=== PATIENT | male | born 2005 | race Caucasian/White ===

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

== ENCOUNTER → 2024-01-28 | Outpatient (CLI) | payer MEDICAID ==
[~2024-01-28] MED LIST changes: -ISOVUE-370 76% 100ML VIAL As Ordered ONE
[2024-01-28 14:23] LABS: APPEARANCE, URINE CLEAR (CLEAR); BACTERIA, URINE AUTO NEGATIVE (NEGATIVE); BILIRUBIN, URINE AUTO NEGATIVE (NEGATIVE); BLOOD, URINE BLOOD NEGATIVE (NEGATIVE); COLOR, URINE STRAW (YELLOW); GLUCOSE, URINE (UA) AUTO NEGATIVE (NEGATIVE); KETONE, URINE AUTO NEGATIVE (NEGATIVE); LEUKOCYTE ESTERASE, URINE AUTO NEGATIVE (NEGATIVE); NITRITE, URINE AUTO NEGATIVE (NEGATIVE); PROTEIN, URINE AUTO NEGATIVE (NEGATIVE); RBC, URINE AUTO 0 /HPF (0-3); SPECIFIC GRAVITY URINE AUTO 1.013 (1.002-1.035); SQUAMOUS EPITHELIAL CELL UR AU 0 /HPF (0-6); UROBILINOGEN, URINE AUTO 0.2 mg/dL (0.0-2.0); WBC, URINE AUTO 0 /HPF (0-3)
[2024-01-28 14:27] LABS: HEMATOCRIT 41.5 % (42.0-52.0); HEMOGLOBIN 14.4 g/dl (13.5-17.5); MEAN CORPUSCULAR HEMOGLOBIN 30.8 pg (27.0-33.0); MEAN CORPUSCULAR HGB CONC 34.7 g/dl (32.0-36.5); MEAN CORPUSCULAR VOLUME 88.9 fl (80.0-96.0); PLATELET COUNT, AUTOMATED 306 10^3/uL (150-450); RED BLOOD COUNT 4.67 10^6/uL (4.30-6.10); WHITE BLOOD COUNT 6.5 10^3/uL (4.0-10.0)
[2024-01-28 14:59] LABS: BLOOD UREA NITROGEN 16 MG/DL (9-23); CALCIUM LEVEL 8.7 MG/DL (8.5-10.1); CARBON DIOXIDE LEVEL 29 MMOL/L (20-31); CHLORIDE LEVEL 105 MMOL/L (98-107); CREATININE FOR GFR 1.03 MG/DL (0.70-1.30); GLUCOSE, FASTING 77 MG/DL (60-100); POTASSIUM SERUM 4.2 MMOL/L (3.5-5.1); SODIUM LEVEL 141 MMOL/L (136-145)
== END ==
LOC: M RAD 13:44
PROVIDERS: ATTEND Physician Assistant
DX: Z01.818 Encounter for other preprocedural examination (principal)

== ENCOUNTER 2024-02-06 06:07 | Inpatient (IN) | payer MEDICAID ==
[~2024-02-06] VITALS: Ht 177.8 cm; Wt 72.1 kg
[2024-02-06] VITALS (8 sets, daily range): BP systolic 132–140; BP diastolic 68–80; TEMP 97.2–98.8; O2SAT 94–98
[~2024-02-06 06:07] MED LIST changes: +oil of oregano PO
[2024-02-06] MEDS ORDERED: LR 1,000 ML IV SCH (06:25)
[2024-02-06] MEDS ORDERED: ONDANSETRON 4MG 2ML VIAL IV PRN ×2 (07:35→08:30)
[2024-02-06] MEDS: ceFAZolin SOD 2 GM in IV 1 EA IV ONE (07:41)
[2024-02-06] MEDS ORDERED: ONDANSETRON 4MG 2ML VIAL As Ordered ONE (08:20)
[2024-02-06] MEDS ORDERED: dexmedeTOMIDine (4MCG/ML)200MCG/50ML BTL (PRECEDEX) As Ordered ONE (08:20)
[2024-02-06] MEDS ORDERED: propofoL 200 MG/20 ML VIAL As Ordered ONE (08:20)
[2024-02-06] MEDS ORDERED: MIDAZOLAM INJ 2MG/2ML VIAL As Ordered ONE (08:20)
[2024-02-06] MEDS ORDERED: METOCLOPRAMIDE INJ 10MG/2ML VIAL As Ordered ONE (08:20)
[2024-02-06] MEDS ORDERED: ROCURONIUM BROMIDE 50MG/5ML VIAL As Ordered ONE (08:20)
[2024-02-06] MEDS ORDERED: HYDROmorphone HCL 2MG/ML 1ML VIAL As Ordered ONE (08:20)
[2024-02-06] MEDS ORDERED: fentaNYL 250 MCG/5 ML INJECTION As Ordered ONE (08:20)
[2024-02-06] MEDS ORDERED: SEVOFLURANE INHAL SOLN 250 ML BTL As Ordered ONE (08:20)
[2024-02-06] MEDS ORDERED: SUGAMMADEX SODIUM 500 MG/5 ML VIAL (BRIDION) As Ordered ONE (08:20)
[2024-02-06] MEDS ORDERED: ACETAMINOPHEN 1000MG 100ML IV BAG As Ordered ONE (08:20)
[2024-02-06] MEDS ORDERED: LIDOCAINE 2% 100MG/5ML SDV (FOR ANES.) As Ordered ONE (08:20)
[2024-02-06] MEDS ORDERED: fentaNYL 100 MCG/2 ML INJECTION IV PRN (08:30)
[2024-02-06] MEDS ORDERED: MORPHINE 2 MG/ML 1ML VIAL IV PRN (08:30)
[2024-02-06] MEDS ORDERED: oxyCODONE 5MG TAB PO PRN (08:30)
[2024-02-06] MEDS ORDERED: ePHEDrine SULFATE 25 MG/5 ML(5MG/ML) SYRINGE As Ordered ONE (09:18)
[2024-02-06] MEDS: LIDOCAINE 1% SDV 30ML VIAL As Ordered ONE (11:35)
[2024-02-06] MEDS: METHYLENE BLUE 0.5% (5MG/ML) 10 ML AMP (PROVAYBLUE) As Ordered ONE (11:36)
[2024-02-06] MEDS ORDERED: PROMETHAZINE 25MG/ML 1ML VIAL IV PRN (11:40)
[2024-02-06] MEDS: fentaNYL 100 MCG/2 ML INJECTION IV PRN (12:27)
[2024-02-06 12:37] LABS: HEMATOCRIT 43.4 % (42.0-52.0); MEAN CORPUSCULAR HEMOGLOBIN 31.1 pg (27.0-33.0); MEAN CORPUSCULAR HGB CONC 34.6 g/dl (32.0-36.5); PLATELET COUNT, AUTOMATED 262 10^3/uL (150-450); RED BLOOD COUNT 4.82 10^6/uL (4.30-6.10); WHITE BLOOD COUNT 8.5 10^3/uL (4.0-10.0)
[2024-02-06] MEDS: HYDROMORPHONE HCL 0.5 MG/ 0.5 ML SYRINGE IV PRN (12:38)
[2024-02-06] MEDS: PERCOCET 5MG/325MG TAB PO PRN ×3 (12:39→23:10)
[2024-02-06 12:56] LABS: BLOOD UREA NITROGEN 16 MG/DL (9-23); CARBON DIOXIDE LEVEL 27 MMOL/L (20-31); CHLORIDE LEVEL 104 MMOL/L (98-107); CREATININE FOR GFR 1.04 MG/DL (0.70-1.30); GLUCOSE, FASTING 135 MG/DL (60-100); POTASSIUM SERUM 3.9 MMOL/L (3.5-5.1); SODIUM LEVEL 138 MMOL/L (136-145)
[2024-02-06] MEDS ORDERED: fentaNYL 100 MCG/2 ML INJECTION As Ordered ONE (13:46)
[2024-02-06] MEDS: fentaNYL 100 MCG/2 ML INJECTION IV ONE (13:55)
[2024-02-06] MEDS: NS 1,000 ML IV SCH (14:27)
[2024-02-06] MEDS ORDERED: HOME MED LIST COMPLETE! XX SCH (15:20)
[2024-02-06] MEDS: ceFAZolin SOD 1 GM in D5W MINI-BAG PLUS 50 ML IV SCH (16:18)
[2024-02-06] MEDS: DOCUSATE SODIUM 100MG CAPSULE PO SCH (20:58)
[2024-02-06] MEDS: ACETAMINOPHEN TAB 650MG DOSE (2X325MG) PO PRN (20:58)
[2024-02-06] MEDS: oxyBUTYnin 5 MG TAB PO PRN (22:48)
[2024-02-06] MEDS: NICOTINE 7 MG/24 HR TRANSDERMAL TD PRN (23:08)
[2024-02-07 02:04] VITALS: BP 138/77; TEMP 97.2; O2SAT 96
[2024-02-07 05:56] VITALS: BP 136/78; TEMP 98.1; O2SAT 97
[2024-02-07 06:11] LABS: HEMATOCRIT 39.1 % (42.0-52.0); HEMOGLOBIN 13.7 g/dl (13.5-17.5); MEAN CORPUSCULAR HEMOGLOBIN 30.9 pg (27.0-33.0); MEAN CORPUSCULAR VOLUME 88.3 fl (80.0-96.0); PLATELET COUNT, AUTOMATED 251 10^3/uL (150-450); RED BLOOD COUNT 4.43 10^6/uL (4.30-6.10); WHITE BLOOD COUNT 8.4 10^3/uL (4.0-10.0)
[2024-02-07 06:35] LABS: BLOOD UREA NITROGEN 11 MG/DL (9-23); CALCIUM LEVEL 8.7 MG/DL (8.5-10.1); CARBON DIOXIDE LEVEL 28 MMOL/L (20-31); CHLORIDE LEVEL 103 MMOL/L (98-107); CREATININE FOR GFR 0.96 MG/DL (0.70-1.30); GLUCOSE, FASTING 76 MG/DL (60-100); POTASSIUM SERUM 3.5 MMOL/L (3.5-5.1); SODIUM LEVEL 138 MMOL/L (136-145)
[2024-02-07 10:00] VITALS: BP 135/78; TEMP 98.6; O2SAT 99
[2024-02-07] MEDS ORDERED: COLA100C5 PO (12:57)
[2024-02-07] MEDS ORDERED: PERCOCET PO (12:57)
== END 2024-02-07 16:03 | disposition home or self-care (01) | DRG 443 ==
LOC: M OR 06:07 → M MSPAV 14:39
PROVIDERS: ADMIT Urology; ATTEND Urology
PROC: 8E0W4CZ Robotic Assisted Procedure of Trunk Region, Percutaneous Endoscopic Approach (ICD-10-PCS; 2024-02-06)
PROC: 0TQ34ZZ Repair Right Kidney Pelvis, Percutaneous Endoscopic Approach (ICD-10-PCS; principal; 2024-02-06 07:30)
DX: N13.5 Crossing vessel and stricture of ureter without hydronephrosis (principal); Z88.2 Allergy status to sulfonamides

== ENCOUNTER → 2024-05-14 | Outpatient (CLI) | payer MEDICAID ==
[~2024-05-14] MED LIST changes: +COLA100C5 PO; +ISOVUE-370 76% 100ML VIAL As Ordered ONE; +ONDA-282 PO; -ONDA4TAB6 PO; +PERCOCET PO
== END ==
LOC: M RAD 08:24
PROVIDERS: ATTEND Urology
DX: N13.5 Crossing vessel and stricture of ureter without hydronephrosis (principal)
CPT/HCPCS: 74178; Q9967

== ENCOUNTER 2024-12-08 14:21 | Inpatient (IN) | payer MEDICAID ==
[~2024-12-08] VITALS: Ht 180.3 cm; Wt 80.0 kg
[~2024-12-08 14:21] MED LIST changes: -ISOVUE-370 76% 100ML VIAL As Ordered ONE
[2024-12-08 15:07] LABS: HEMATOCRIT 45.9 % (42.0-52.0); HEMOGLOBIN 16.1 g/dl (13.5-17.5); MEAN CORPUSCULAR HEMOGLOBIN 31.9 pg (27.0-33.0); MEAN CORPUSCULAR HGB CONC 35.1 g/dl (32.0-36.5); MEAN CORPUSCULAR VOLUME 91.1 fl (80.0-96.0); PLATELET COUNT, AUTOMATED 252 10^3/uL (150-450); RED BLOOD COUNT 5.04 10^6/uL (4.30-6.10); WHITE BLOOD COUNT 4.5 10^3/uL (4.0-10.0)
[2024-12-08 15:28] LABS: AMPHETAMINES LEVEL URINE NEGATIVE (NEGATIVE); BARBITURATES URINE NEGATIVE (NEGATIVE)
[2024-12-08 15:29] LABS: BENZODIAZEPINES URINE NEGATIVE (NEGATIVE); CANNABINOIDS URINE NEGATIVE (NEGATIVE); COCAINE METABOLITE URINE NEGATIVE (NEGATIVE); METHADONE URINE NEGATIVE (NEGATIVE); OPIATES URINE NEGATIVE (NEGATIVE); PHENCYCLIDINE URINE NEGATIVE (NEGATIVE)
[2024-12-08 15:32] LABS: ALBUMIN 4.3 G/DL (3.2-5.2); ALKALINE PHOSPHATASE 57 U/L (40-129); ALT/SGPT 15 U/L (7.0-40); AST/SGOT 20 U/L (<34); BILIRUBIN,DIRECT 0.2 MG/DL (<0.4); BILIRUBIN,TOTAL 0.7 MG/DL (0.3-1.2); BLOOD UREA NITROGEN 10 MG/DL (9-23); CALCIUM LEVEL 9.2 MG/DL (8.5-10.1); CARBON DIOXIDE LEVEL 29 MMOL/L (20-31); CHLORIDE LEVEL 106 MMOL/L (98-107); CREATININE FOR GFR 0.82 MG/DL (0.70-1.30); GLUCOSE, FASTING 76 MG/DL (60-100); POTASSIUM SERUM 4.1 MMOL/L (3.5-5.1); SALICYLATE LEVEL < 3.0 MG/DL (<30); SODIUM LEVEL 143 MMOL/L (136-145); TOTAL PROTEIN 7.1 G/DL (5.7-8.2)
[2024-12-08 15:35] LABS: THYROID STIMULATING HORMONE 0.626 uIU/ML (0.48-4.17)
[2024-12-08] MEDS ORDERED: HOME MED LIST COMPLETE! XX SCH (18:10)
[2024-12-08] MEDS ORDERED: MAALOX 30 ML SUSP *UDC PO PRN (18:55)
[2024-12-08] MEDS ORDERED: MOM 30ML SUSPENSION UDC PO PRN (18:55)
[2024-12-08] MEDS ORDERED: IBUPROFEN 400MG TAB PO PRN (18:55)
[2024-12-08] MEDS: MULTIVITAMINS/MINERALS THERAP 1 TAB PO SCH (19:38)
[2024-12-08] MEDS: FOLIC ACID 1MG TAB PO SCH (19:38)
[2024-12-08] MEDS: THIAMINE 100 MG TAB PO SCH (19:38)
[2024-12-08] MEDS: ACETAMINOPHEN 325 MG TAB PO PRN (19:57)
[2024-12-09 07:00] VITALS: BP 151/67; TEMP 97.9; O2SAT 100
[2024-12-09 07:11] VITALS: BP_SYST 151; BP_DIAS 67; BP_DIAS 87
[2024-12-09] MEDS: NICOTINE 14 MG/24 HR TRANSDERMAL TD SCH (12:31)
[2024-12-09] MEDS: diphenhydrAMINE 25MG CAP PO PRN (13:01)
[2024-12-09 16:00] VITALS: BP 152/77
[2024-12-09 17:01] VITALS: BP 152/77; TEMP 98; O2SAT 98
[2024-12-09 19:55] VITALS: BP 141/86
[2024-12-09] MEDS: LORazepam 2 MG TAB PO PRN (19:58)
[2024-12-09 22:00] VITALS: BP 110/59; TEMP 98; O2SAT 100
[2024-12-10 06:33] VITALS: BP 137/65; TEMP 97.9; O2SAT 99
[2024-12-10 08:00] VITALS: BP 136/68
[2024-12-10 14:00] VITALS: BP 130/64
[2024-12-10 15:00] VITALS: BP 126/70; TEMP 98.3; O2SAT 100
[2024-12-11 06:26] VITALS: BP 151/78; TEMP 97.7; O2SAT 98
[2024-12-11 14:00] VITALS: BP 146/82; TEMP 97.5; O2SAT 99
[2024-12-11 16:08] VITALS: BP_DIAS 82
[2024-12-11 16:27] VITALS: BP 129/75; TEMP 98.8; O2SAT 100
[2024-12-11] MEDS: traZODone 50 MG TAB PO PRN (20:03)
[2024-12-12 06:39] VITALS: BP 136/86; TEMP 98.3; O2SAT 99
[2024-12-12] MEDS ORDERED: FOLI1TAB11 PO (07:18)
[2024-12-12] MEDS ORDERED: NICO14PA TD (07:18)
[2024-12-12] MEDS ORDERED: ABIL1TAB11 PO (07:18)
[2024-12-12] MEDS ORDERED: THERTAB19 PO (07:18)
== END 2024-12-12 14:30 | disposition home or self-care (01) | DRG 753 ==
LOC: M ED 14:21 → M ED INP 18:55 → M PSY 12-09 00:05
PROVIDERS: ADMIT Psychiatry & Neurology Neurology; ATTEND Psychiatry & Neurology Neurology
DX: F31.9 Bipolar disorder, unspecified (principal); F10.90 Alcohol use, unspecified, uncomplicated; F19.90 Other psychoactive substance use, unspecified, uncomplicated; Z56.0 Unemployment, unspecified; R45.850 Homicidal ideations; Z88.2 Allergy status to sulfonamides; Z91.048 Other nonmedicinal substance allergy status

== ENCOUNTER → 2025-07-13 | Outpatient (REF) | payer MEDICAID ==
[~2025-07-13] MED LIST changes: +ABIL1TAB11 PO; +FOLI1TAB11 PO; +NICO14PA TD; +THERTAB19 PO
[2025-07-13 18:02] LABS: BASO # 0.1 10^3/uL (0.0-0.2); BASO % 0.7 % (0.0-1.0); EOS # 0.3 10^3/uL (0.0-0.5); EOS % 4.2 % (0.0-3.0); LYMPH # 1.9 10^3/uL (1.5-5.0); LYMPH % 28.3 % (24.0-44.0); MONO # 0.7 10^3/uL (0.0-0.8); MONO % 10.5 % (2.0-8.0); NEUTROPHILS # 3.8 10^3/uL (1.5-8.5); NEUTROPHILS % 55.9 % (36.0-66.0); PLATELET COUNT, AUTOMATED 308 10^3/uL (150-450)
[2025-07-13 18:33] LABS: ALT/SGPT 19 U/L (7.0-40); AST/SGOT 23 U/L (<34); CALCIUM LEVEL 9.0 MG/DL (8.5-10.1); CARBON DIOXIDE LEVEL 26 MMOL/L (20-31); CHLORIDE LEVEL 106 MMOL/L (98-107); CREATININE FOR GFR 1.13 MG/DL (0.70-1.30); GLOMERULAR FILTRATION RATE > 90.0 (>60); MAGNESIUM LEVEL 2.0 MG/DL (1.8-2.4); POTASSIUM SERUM 4.3 MMOL/L (3.5-5.1); SODIUM LEVEL 142 MMOL/L (136-145)
[2025-07-13 18:34] LABS: FREE T4 1.24 NG/DL (0.83-1.43)
== END ==
LOC: M SFHCCAPE 14:01
PROVIDERS: ATTEND Physician Assistant Medical
DX: R00.2 Palpitations (principal)